=== PATIENT | male | born 1975 | race Caucasian/White ===

== ENCOUNTER 2017-01-23 11:07 | Inpatient (IN) | payer OTHER ==
[~2017-01-23] VITALS: Ht 177.8 cm; Wt 79.7 kg
[2017-01-23] MEDS ORDERED: SODIUM CHLORID 0.9% 500 ML IV PRN (11:30)
[2017-01-23] MEDS ORDERED: POVIDONE IODINE 5% (ANTISEPSIS KIT) 4 APPLICATIONS EACH NARE PRN (11:30)
[2017-01-23] MEDS ORDERED: LACTATED RINGER'S 1000 ML IV PRN (11:30)
[2017-01-23] MEDS ORDERED: INSULIN HUMAN REGULAR 1,000 UNITS/10 ML VIAL SQ PRN (11:30)
[2017-01-23] MEDS ORDERED: CHLORHEXIDINE GLUCONATE 2 % 1 PACK (2 CLOTHS) TOPICAL PRN (11:30)
[2017-01-23] MEDS ORDERED: ceFAZolin 2 GM PREMIX 50 ML IV SCH (11:30)
[2017-01-23] MEDS ORDERED: METOPROLOL TARTRATE 25 MG TAB PO PRN (11:30)
[2017-01-23 11:31] VITALS: BP 111/71; PULSE 71; RESP 20; TEMP 97.8; O2SAT 97
[2017-01-23] MEDS ORDERED: ONDANSETRON HCL 4 MG/2 ML VIAL IV PUSH ONE (12:00)
[2017-01-23] MEDS ORDERED: LACTATED RINGER'S 1000 ML INJ 2,000 ML IV ONE (12:00)
[2017-01-23] MEDS ORDERED: PROPOFOL 200 MG/20 ML AMP IV ONE (12:00)
[2017-01-23 12:04] LABS: INTERNATIONAL NORMALIZED RATIO 0.9 RATIO; PROTHROMBIN TIME - PATIENT 10.2 SEC (9.8-11.6)
[2017-01-23] MEDS ORDERED: ACETAMINOPHEN 1000 MG/100 ML VIAL IV ONE (12:31)
[2017-01-23] MEDS ORDERED: MIDAZOLAM HCL 2 MG/2 ML VIAL ONE (12:32)
[2017-01-23] MEDS ORDERED: fentaNYL CITRATE 250 MCG/5 ML AMP ONE ×2 (12:32→15:53)
[2017-01-23] MEDS ORDERED: HYDROmorphone HCL PF 2 MG/ML VIAL ONE (12:32)
[2017-01-23] MEDS ORDERED: SUGAMMADEX SODIUM 200 MG/2 ML VIAL IV PUSH ONE ×2 (12:32)
[2017-01-23] MEDS ORDERED: LORazepam 2 MG/ML VIAL ONE (16:32)
[2017-01-23] MEDS ORDERED: *morphine SULFATE 8 MG/ML PERIprocedure ONLY ONE ×2 (16:33→18:28)
[2017-01-23] MEDS: PANTOPRAZOLE SODIUM 40 MG VIAL IV PUSH SCH (17:06)
[2017-01-23] MEDS: ACETAMINOPHEN 1000 MG/100 ML VIAL IV SCH ×2 (17:06→23:12)
[2017-01-23] MEDS: SODIUM CHLOR 0.9% 1000 ML INJ 1,000 ML IV SCH (17:15)
[2017-01-23] MEDS ORDERED: DO NOT ADM ANY ANTICOAGULANT DRUGS PRN (17:45)
[2017-01-23 18:03] LABS: AUTOMATED NEUTROPHIL # 15.9 TH/MM3 (1.8-7.7); BASOPHIL % 0.2 % (0.0-2.0); EOSINOPHIL % 0.2 % (0.0-4.0); HEMATOCRIT 39.1 % (39.0-51.0); HEMO FLAGS DIFF FINAL; LYMPH % 6.2 % (9.0-44.0); LYMPHOCYTE # 1.1 TH/MM3 (1.0-4.8); MEAN CELL VOLUME 91.6 FL (80.0-100.0); MEAN CORPUSCULAR HEMOGLOBIN 30.7 PG (27.0-34.0); MEAN CORPUSCULAR HGB CONC 33.5 % (32.0-36.0); MONO % 2.1 % (0.0-8.0); NEUT % 91.3 % (16.0-70.0); PLATELET COUNT 160 TH/MM3 (150-450); RED BLOOD COUNT 4.27 MIL/MM3 (4.50-5.90); RED CELL DISTRIBUTION WIDTH 13.5 % (11.6-17.2); WHITE BLOOD COUNT 17.4 TH/MM3 (4.0-11.0)
[2017-01-23 18:21] LABS: BICARBONATE 26.8 MEQ/L (21.0-32.0); POTASSIUM 3.8 MEQ/L (3.5-5.1)
[2017-01-23 20:00] VITALS: BP 118/75; PULSE 87; RESP 17; TEMP 96.6; O2SAT 97
[2017-01-23] MEDS: DOCUSATE SODIUM 100 MG CAP PO SCH (20:09)
[2017-01-23] MEDS: ONDANSETRON HCL 4 MG/2 ML VIAL IV PUSH PRN (21:17)
[2017-01-23] MEDS: LORazepam 1 MG TAB PO PRN (21:48)
[2017-01-24] VITALS: BP 125/70; PULSE 80; RESP 17; TEMP 97.4; O2SAT 97
[2017-01-24] MEDS: SODIUM CHLOR 0.9% 1000 ML INJ 1,000 ML IV SCH ×3 (01:45→18:13)
[2017-01-24 04:00] VITALS: BP 118/72; PULSE 76; RESP 17; TEMP 98.7; O2SAT 97
[2017-01-24] MEDS: ACETAMINOPHEN 1000 MG/100 ML VIAL IV SCH ×4 (04:42→23:44)
[2017-01-24] MEDS: ONDANSETRON HCL 4 MG/2 ML VIAL IV PUSH PRN ×2 (05:52→16:42)
[2017-01-24] MEDS: LORazepam 1 MG TAB PO PRN (05:52)
[2017-01-24 08:00] VITALS: BP 107/68; PULSE 99; RESP 17; TEMP 96.9; O2SAT 97
[2017-01-24 08:14] LABS: HEMATOCRIT 38.7 % (39.0-51.0); MEAN CELL VOLUME 90.8 FL (80.0-100.0); MEAN CORPUSCULAR HEMOGLOBIN 31.1 PG (27.0-34.0); MEAN CORPUSCULAR HGB CONC 34.2 % (32.0-36.0); PLATELET COUNT 157 TH/MM3 (150-450); RED BLOOD COUNT 4.26 MIL/MM3 (4.50-5.90); RED CELL DISTRIBUTION WIDTH 13.1 % (11.6-17.2); REVIEW FLAG FINAL; WHITE BLOOD COUNT 16.7 TH/MM3 (4.0-11.0)
--- NOTE | 2017-01-24 08:21 | MP ---
cc: SALAZAR OLIVERA MD DATE OF SURGERY 01/23/2017 PREOPERATIVE DIAGNOSIS Left solid renal mass POSTOPERATIVE DIAGNOSIS Left solid renal mass PROCEDURE PERFORMED Left robotic radical nephrectomy. SURGEON Salazar Olivera MD ANESTHESIA General COMPLICATIONS None PREOPERATIVE ANTIBIOTICS Ancef one gram IV DRAINS None SPECIMEN Left kidney for permanent BLOOD LOSS 50 mL FLUIDS Crystalloids DISPOSITION To recovery INDICATIONS The patient is a 41-year-old male who was found to be having bilateral flank pain. The patient has a CT of the abdomen and pelvis with and without contrast and was found to have a suspicious solid 3.7 renal mass on his anterior mid pole of his left kidney. Treatment options were discussed including versus partial nephrectomy versus radical nephrectomy versus cryoablation. The risks, benefits, advantages and side effects of each potential treatment modality were discussed and he elected to proceed with a radical partial nephrectomy. After the risks and benefits and alternatives specifically of partial nephrectomy were explained including the risk of positive margins, dialysis, renal failure, conversion to open and loss of the entire kidney among others, he elected to proceed and informed consent was obtained. DETAILS OF THE PROCEDURE The patient was properly identified, brought back to the operating room and was laid supine on the operating table. A formal time-out was performed under the direction of anesthesiology. The patient was induced under general aesthetic. Preoperative antibiotics in the form of Ancef 2 grams IV were given for the start of the procedure. The patient was then placed in the right lateral decubitus position with the left side up. All pressure points were padded. Hsu catheter was placed under sterile technique. A stab incision was made superior and lateral to the umbilicus. At this time, a Veress needle was used to gain access to the abdominal cavity. Pneumoperitoneum was achieved. Under direct visualization, I placed the camera port after extending the incision. The abdominal cavity was inspected with no evidence of any intra-abdominal injury or obvious bleeding. At this time, the four other remaining ports were placed under direct visualization including the two 8 mm robotic ports that are triangulated off the camera port, as well as a superior midline and inferior midline 12 mm certified medical technician assistant port. At this time, the robot was then brought into position. We began by taking down some minor adhesions up near the splenic flexure. I then took down the white line of Toldt and reflected the colon medially. This exposed the retroperitoneum. I then carefully dissected the mesentery off of the kidney and this exposed the gonadal vein and ureter quite easily. I then developing a plane between the ureter and the psoas muscle. The kidney was then retracted anterior to the abdominal wall and I marched cephalad up to the psoas muscle bluntly dissecting fat. I followed the left gonadal vein to the insertion of left renal vein. This was then carefully taken with a robotic vessel stapler. The artery and vein were then carefully dissected out circumferentially. At this time, I then defatted the kidney and came across the tumor corresponding to the CT scan findings. It appeared that the tumor sat on top of the renal vein and there was no obvious plane that was seen. This was consistent with CT findings. After careful inspection, I made a decision that we would be unable to remove the tumor successfully and repair the renal defect without injuring the renal vein. Therefore, we talked with the patient in the patient's family preoperatively, it was decided just to remove the entire kidney. At this time using an endovascular stapler, the artery and vein were then taken separately. The upper pole including the splenic flexure attachments and the lateral part of kidney were carefully dissected off with electrocautery. There was some bleeding in the left upper adrenal bed and the adrenal gland was identified. Bleeding was controlled. At this time, the ureter and gonadal vein caudally were then taken as well. The kidney was completely freed. It was then placed in an EndoCatch bag for later removal. I later inspect the adrenal bed and the hilum. It appeared to be dry. At this time, I placed three grams of Josh for hemostatic purposes. The pressure was then dropped down to seven intra-abdominally. There was no evidence any bleeding. At this time, the robot was then undocked. I extracted the kidney through the left lower quadrant position after extending the incision. The kidney was then removed in its entirety in an EndoCatch bag. The fascia was then closed with a running 1-0 PDS. A second look was then performed. The abdominal cavity appeared to be dry. The underneath portion of the closing incision was free of bowel. All ports were then removed under direct visualization. Skin was closed with absorbable suture. This concluded the procedure. The patient was extubated and sent to recovery in stable condition to be admitted for routine postop care. Sponge and needle count was correct and the case. MD PABLO Chin/GURU /3:58 PM /8:00 AM
[2017-01-24] MEDS: DOCUSATE SODIUM 100 MG CAP PO SCH ×2 (08:22→21:00)
[2017-01-24] MEDS: MORPHINE SULFATE 4 MG/ML INJ IV PUSH PRN ×2 (08:25→11:33)
[2017-01-24 08:32] LABS: BICARBONATE 25.3 MEQ/L (21.0-32.0); POTASSIUM 4.1 MEQ/L (3.5-5.1)
[2017-01-24] MEDS: METOCLOPRAMIDE HCL 10 MG/2 ML VIAL IV PUSH PRN (11:00)
[2017-01-24 12:00] VITALS: BP 109/64; PULSE 83; RESP 18; TEMP 97.3; O2SAT 98
--- NOTE | 2017-01-24 12:34 | HHI.PR ---
Subjective Patient symptoms today anxiety attack overnight. Relieved with Ativan. Also N/V. Denies flatus. Does not have appetite. Pain controlled. OOB today. Objective Vital Signs Vital Signs Date Time Temp Pulse Resp B/P Pulse Ox O2 Delivery O2 Flow Rate FiO2 01/24/17 11:38 18 01/24/17 10:45 18 01/24/17 10:45 18 01/24/17 08:00 96.9 99 17 107/68 97 01/24/17 04:00 98.7 76 17 118/72 97 01/24/17 00:00 97.4 80 17 125/70 97 01/23/17 20:00 96.6 87 17 118/75 97 01/23/17 18:30 98.0 85 20 129/79 96 Nasal Cannula 2 01/23/17 18:15 82 18 115/64 97 Nasal Cannula 2 01/23/17 18:00 82 18 118/69 96 Nasal Cannula 2 01/23/17 17:45 81 13 115/64 96 Nasal Cannula 2 01/23/17 17:30 83 13 119/69 96 Nasal Cannula 2 01/23/17 17:15 82 13 119/67 97 Nasal Cannula 2 01/23/17 17:00 78 13 116/74 97 Nasal Cannula 2 01/23/17 16:45 79 13 118/70 97 Nasal Cannula 2 01/23/17 16:33 97.5 91 13 141/76 93 Nasal Cannula 2 Result Diagram: 01/24/17 0643 01/24/17 0643 Objective Remarks NAD. A/O x 3 CTAB RRR abd soft, non distended, appropriately tender. Inc c/d/i Hsu urine clear Ext NT. Medications and IVs Current Medications Medications (Trade) Dose Ordered Sig/Gillian Route Start Time Stop Time Status Last Admin Lactated Ringer's 1,000 ml @ 30 mls/hr Q24H PRN IV 01/23/17 11:30 01/26/17 11:29 Sodium Chloride 500 ml @ 30 mls/hr [id number] PRN IV 01/23/17 11:30 01/26/17 11:29 (NS 1000 ml Inj) 1,000 ml @ 125 mls/hr Q8H IV 01/23/17 18:00 01/24/17 10:13 (Colace) 100 mg BID PO 01/23/17 21:00 01/24/17 08:22 (Roxicodone) 10 mg Q4H PRN PO 01/23/17 16:00 01/24/17 10:08 (Roxicodone) 5 mg Q4H PRN PO 01/23/17 16:00 (Ofirmev Inj) 1,000 mg Q6H IV 01/23/17 17:00 01/24/17 10:15 Morphine Sulfate 4 mg 4 mg Q3H PRN IV PUSH 01/23/17 16:00 01/24/17 11:33 (Ancef Inj/NS Inj) 100 ml @ 200 mls/hr Q8H IV 01/23/17 22:00 01/24/17 05:52 (Protonix Inj) 40 mg Q24H IV PUSH 01/23/17 17:00 01/23/17 17:06 (Zofran Inj) 4 mg Q6HR PRN IV PUSH 01/23/17 16:00 01/24/17 05:52 Miscellaneous Information ALL NURSING DEPARTME... UNSCH PRN .XX 01/23/17 17:45 01/24/17 17:44 (Reglan Inj) 5 mg Q8H PRN IV PUSH 01/24/17 10:45 01/24/17 11:00 Assessment and Plan Assessment and Plan POD#1 Left robotic Radical Nephrectomy -Start Xanax -Hgb stable -Add Reglan -OOB -Hgb stable. Creatinine slightly elevated. Repeat BMP in A.M. -GI/DVT prophylaxis. Be Cheng MD Jan 24, 2017 12:34
[2017-01-24 16:00] VITALS: BP 111/76; PULSE 64; RESP 16; TEMP 96.6; O2SAT 96
[2017-01-24] MEDS: PANTOPRAZOLE SODIUM 40 MG VIAL IV PUSH SCH (16:41)
[2017-01-24] MEDS: ALPRAZolam 0.5 MG TAB PO PRN (18:28)
[2017-01-24 20:00] VITALS: BP 114/81; PULSE 83; RESP 16; TEMP 96.6; O2SAT 94
[2017-01-25] VITALS: BP 102/66; PULSE 93; RESP 18; TEMP 98.3; O2SAT 92
[2017-01-25] MEDS: ALPRAZolam 0.5 MG TAB PO PRN ×4 (00:20→22:10)
[2017-01-25] MEDS: SODIUM CHLOR 0.9% 1000 ML INJ 1,000 ML IV SCH ×4 (02:00→20:02)
[2017-01-25 04:00] VITALS: BP 117/64; PULSE 69; RESP 18; TEMP 98.2; O2SAT 93
[2017-01-25] MEDS: ACETAMINOPHEN 1000 MG/100 ML VIAL IV SCH ×2 (06:37→11:32)
[2017-01-25 06:43] LABS: BICARBONATE 25.6 MEQ/L (21.0-32.0); POTASSIUM 3.8 MEQ/L (3.5-5.1)
[2017-01-25 08:00] VITALS: BP 112/79; PULSE 98; RESP 17; TEMP 98.6; O2SAT 91
[2017-01-25] MEDS: METOCLOPRAMIDE HCL 10 MG/2 ML VIAL IV PUSH PRN ×2 (09:15→19:58)
[2017-01-25] MEDS: DOCUSATE SODIUM 100 MG CAP PO SCH ×2 (09:16→19:55)
[2017-01-25] MEDS: MORPHINE SULFATE 4 MG/ML INJ IV PUSH PRN ×2 (11:32→22:17)
[2017-01-25] MEDS: ONDANSETRON HCL 4 MG/2 ML VIAL IV PUSH PRN ×2 (11:37→19:59)
[2017-01-25 12:00] VITALS: BP 126/78; PULSE 83; RESP 17; TEMP 97.5; O2SAT 93
--- NOTE | 2017-01-25 13:11 | HHI.PR ---
Subjective Patient symptoms today nausea slightly improved. not much po intake. passed small amount of flatus. ambulating today. Voiding on own. Denies fevers, chills, chest pain. Xanax helps with anxiety. Objective Vital Signs Vital Signs Date Time Temp Pulse Resp B/P Pulse Ox O2 Delivery O2 Flow Rate FiO2 01/25/17 12:00 97.5 83 17 126/78 93 01/25/17 08:00 98.6 98 17 112/79 91 01/25/17 04:00 98.2 69 18 117/64 93 01/25/17 00:00 98.3 93 18 102/66 92 01/24/17 20:00 96.6 83 16 114/81 94 01/24/17 19:23 18 01/24/17 17:12 18 01/24/17 16:00 96.6 64 16 111/76 96 Result Diagram: 01/24/17 0643 01/25/17 0501 Objective Remarks NAD. A/O x 3 CTAB RRR abd soft, non distended, appropriately tender. Inc c/d/i Ext NT. Medications and IVs Current Medications Medications (Trade) Dose Ordered Sig/Gillian Route Start Time Stop Time Status Last Admin Lactated Ringer's 1,000 ml @ 30 mls/hr Q24H PRN IV 01/23/17 11:30 01/26/17 11:29 Sodium Chloride 500 ml @ 30 mls/hr [id number] PRN IV 01/23/17 11:30 01/26/17 11:29 (NS 1000 ml Inj) 1,000 ml @ 125 mls/hr Q8H IV 01/23/17 18:00 01/25/17 02:00 (Colace) 100 mg BID PO 01/23/17 21:00 01/25/17 09:16 (Roxicodone) 10 mg Q4H PRN PO 01/23/17 16:00 01/25/17 09:16 (Roxicodone) 5 mg Q4H PRN PO 01/23/17 16:00 (Ofirmev Inj) 1,000 mg Q6H IV 01/23/17 17:00 01/25/17 11:32 Morphine Sulfate 4 mg 4 mg Q3H PRN IV PUSH 01/23/17 16:00 01/25/17 11:32 (Ancef Inj/NS Inj) 100 ml @ 200 mls/hr Q8H IV 01/23/17 22:00 01/25/17 07:27 (Protonix Inj) 40 mg Q24H IV PUSH 01/23/17 17:00 01/24/17 16:41 (Zofran Inj) 4 mg Q6HR PRN IV PUSH 01/23/17 16:00 01/25/17 11:37 (Reglan Inj) 5 mg Q8H PRN IV PUSH 01/24/17 10:45 01/25/17 09:15 (Xanax) 0.5 mg Q6H PRN PO 01/24/17 12:30 01/25/17 09:15 Assessment and Plan Assessment and Plan POD#2 Left robotic Radical Nephrectomy -Advance diet as tolerated -Adjust pain medications. -Good UOP -GI/DVT prophylaxis -Ambulate Be Cheng MD Jan 25, 2017 13:11
[2017-01-25] MEDS: oxyCODONE/ACETAMINOPHEN 10 MG/325 MG TAB PO PRN ×2 (15:41→19:55)
[2017-01-25 16:00] VITALS: BP 129/80; PULSE 71; RESP 18; TEMP 97.3; O2SAT 93
[2017-01-25] MEDS: PANTOPRAZOLE SODIUM 40 MG VIAL IV PUSH SCH (18:02)
[2017-01-25 20:00] VITALS: BP 134/77; PULSE 77; RESP 18; TEMP 97.4; O2SAT 92
[2017-01-26] VITALS: BP 121/74; PULSE 86; RESP 18; TEMP 98.7; O2SAT 95
[2017-01-26] MEDS: ONDANSETRON HCL 4 MG/2 ML VIAL IV PUSH PRN ×2 (03:06→08:13)
[2017-01-26] MEDS: oxyCODONE/ACETAMINOPHEN 10 MG/325 MG TAB PO PRN ×5 (03:06→23:20)
[2017-01-26] MEDS: METOCLOPRAMIDE HCL 10 MG/2 ML VIAL IV PUSH PRN (03:06)
[2017-01-26 08:00] VITALS: BP 120/79; PULSE 79; RESP 18; TEMP 98.5; O2SAT 94
[2017-01-26] MEDS: DOCUSATE SODIUM 100 MG CAP PO SCH ×2 (08:02→20:02)
[2017-01-26] MEDS: ALPRAZolam 0.5 MG TAB PO PRN ×3 (08:02→20:02)
[2017-01-26 11:34] VITALS: O2SAT 96
[2017-01-26 12:00] VITALS: BP 134/79; PULSE 84; RESP 18; TEMP 99; O2SAT 95
[2017-01-26] MEDS: SODIUM CHLOR 0.9% 1000 ML INJ 1,000 ML IV SCH ×2 (13:59→18:29)
[2017-01-26] MEDS: MORPHINE SULFATE 4 MG/ML INJ IV PUSH PRN (15:09)
[2017-01-26 16:00] VITALS: BP 126/80; PULSE 72; RESP 18; TEMP 99; O2SAT 94
--- NOTE | 2017-01-26 17:01 | HHI.PR ---
Subjective Patient symptoms today feels better. less nausea. Walking around room. Minimal flatus. Denies CP./SOB/F /C. Objective Vital Signs Vital Signs Date Time Temp Pulse Resp B/P Pulse Ox O2 Delivery O2 Flow Rate FiO2 01/26/17 12:00 99.0 84 18 134/79 95 01/26/17 11:34 96 01/26/17 08:00 98.5 79 18 120/79 94 01/26/17 00:00 98.7 86 18 121/74 95 01/25/17 22:15 21 01/25/17 20:00 97.4 77 18 134/77 92 Intake & Output 01/26/17 01/26/17 07:00 19:00 Intake Total 2160 ml 360 ml Output Total 1250 ml Balance 910 ml 360 ml Intake Oral 600 ml 360 ml IV Total 1560 ml Output Urine Total 1250 ml # Bowel Movements 0 Result Diagram: 01/24/17 0643 01/25/17 0501 Objective Remarks NAD. A/O x 3 CTAB RRR abd soft, non distended, appropriately tender. Inc c/d/i Ext NT. Medications and IVs Current Medications Medications (Trade) Dose Ordered Sig/Gillian Route Start Time Stop Time Status Last Admin (NS 1000 ml Inj) 1,000 ml @ 125 mls/hr Q8H IV 01/23/17 18:00 01/26/17 13:59 (Colace) 100 mg BID PO 01/23/17 21:00 01/26/17 08:02 (Morphine Inj) 4 mg Q3H PRN IV PUSH 01/23/17 16:00 01/26/17 15:09 (Protonix Inj) 40 mg Q24H IV PUSH 01/23/17 17:00 01/25/17 18:02 (Zofran Inj) 4 mg Q6HR PRN IV PUSH 01/23/17 16:00 01/26/17 08:13 (Reglan Inj) 5 mg Q8H PRN IV PUSH 01/24/17 10:45 01/26/17 03:06 (Xanax) 0.5 mg Q6H PRN PO 01/24/17 12:30 01/26/17 13:58 (Percocet 7.5-325 Mg) 1 tab Q4H PRN PO 8/17/17 13:15 (Percocet 10-325 Mg) 1 tab Q4H PRN PO 01/25/17 13:15 01/26/17 11:28 Assessment and Plan Assessment and Plan POD#3 Left robotic Radical Nephrectomy -Advance diet as tolerated -Increase Xanax. -Good UOP. decrease IV fluids. -GI/DVT prophylaxis -Ambulate Be Cheng MD Jan 26, 2017 17:01
[2017-01-26] MEDS: PANTOPRAZOLE SODIUM 40 MG VIAL IV PUSH SCH ×2 (18:43→18:44)
[2017-01-26 20:00] VITALS: BP 132/78; PULSE 84; RESP 18; TEMP 99.5; O2SAT 92
[2017-01-27] VITALS: BP 120/71; PULSE 64; RESP 18; TEMP 98.2; O2SAT 93
[2017-01-27] MEDS: ALPRAZolam 0.5 MG TAB PO PRN ×4 (01:27→18:39)
[2017-01-27] MEDS: SODIUM CHLOR 0.9% 1000 ML INJ 1,000 ML IV SCH ×2 (04:49→16:12)
[2017-01-27] MEDS: oxyCODONE/ACETAMINOPHEN 7.5 MG/325 MG TAB PO PRN ×3 (06:36→16:49)
[2017-01-27 08:00] VITALS: BP 114/69; PULSE 59; RESP 17; TEMP 96.9; O2SAT 94
[2017-01-27 08:00] LABS: BICARBONATE 28.8 MEQ/L (21.0-32.0); POTASSIUM 3.7 MEQ/L (3.5-5.1)
[2017-01-27] MEDS: DOCUSATE SODIUM 100 MG CAP PO SCH ×2 (08:05→21:00)
[2017-01-27 12:00] VITALS: BP 133/85; PULSE 68; RESP 19; TEMP 98.4; O2SAT 93
--- NOTE | 2017-01-27 12:40 | HHI.PR ---
Subjective Patient symptoms today feels better. pain controlled. Passed more flatus. Denies fevers, chills, nausea. Ambulating. Not much of an appetite. Objective Vital Signs Vital Signs Date Time Temp Pulse Resp B/P Pulse Ox O2 Delivery O2 Flow Rate FiO2 01/27/17 08:00 96.9 59 17 114/69 94 01/27/17 00:00 98.2 64 18 120/71 93 01/26/17 20:00 99.5 84 18 132/78 92 01/26/17 16:00 99.0 72 18 126/80 94 01/26/17 15:14 18 Result Diagram: 01/24/17 0643 01/27/17 0627 Objective Remarks NAD. A/O x 3 CTAB RRR abd soft, non distended, appropriately tender. Inc c/d/i Ext NT. Medications and IVs Current Medications Medications (Trade) Dose Ordered Sig/Gillian Route Start Time Stop Time Status Last Admin (NS 1000 ml Inj) 1,000 ml @ 83 mls/hr Q12H3M IV 01/23/17 18:00 01/27/17 04:49 (Colace) 100 mg BID PO 01/23/17 21:00 01/27/17 08:05 (Morphine Inj) 4 mg Q3H PRN IV PUSH 01/23/17 16:00 01/26/17 15:09 (Protonix Inj) 40 mg Q24H IV PUSH 01/23/17 17:00 01/26/17 18:44 (Zofran Inj) 4 mg Q6HR PRN IV PUSH 01/23/17 16:00 01/26/17 08:13 (Percocet 7.5-325 Mg) 1 tab Q4H PRN PO 01/25/17 13:15 01/27/17 06:36 (Percocet 10-325 Mg) 1 tab Q4H PRN PO 01/25/17 13:15 01/26/17 23:20 (Xanax) 1 mg Q6H PRN PO 01/26/17 18:30 01/27/17 06:36 Assessment and Plan Assessment and Plan POD#4 Left robotic Radical Nephrectomy -Creatinine improved -Pain control -GI/DVT prophylaxis -Discussed pathology with him -Likely d/c tomorrow Be Cheng MD Jan 27, 2017 12:40
[2017-01-27] MEDS ORDERED: ALPR.5 PO (12:42)
[2017-01-27] MEDS ORDERED: OXYC1TAB36 PO (12:42)
[2017-01-27] MEDS ORDERED: DOCU1CAP39 PO (12:42)
[2017-01-27] MEDS ORDERED: ZOFR4TAB3 SL (12:42)
[2017-01-27] MEDS: ONDANSETRON HCL 4 MG/2 ML VIAL IV PUSH PRN ×2 (12:43→18:40)
[2017-01-27] MEDS ORDERED: PERC10TA27 PO (12:45)
[2017-01-27] MEDS: MORPHINE SULFATE 4 MG/ML INJ IV PUSH PRN (15:01)
[2017-01-27 16:00] VITALS: BP 120/75; PULSE 62; RESP 18; TEMP 96.8; O2SAT 93
[2017-01-27 20:00] VITALS: BP 121/81; PULSE 71; RESP 18; TEMP 98.4; O2SAT 93
[2017-01-27] MEDS: oxyCODONE/ACETAMINOPHEN 10 MG/325 MG TAB PO PRN (21:27)
[2017-01-28] VITALS: BP 107/57; PULSE 63; RESP 18; TEMP 96.8; O2SAT 94
[2017-01-28] MEDS: oxyCODONE/ACETAMINOPHEN 10 MG/325 MG TAB PO PRN ×6 (00:23→22:54)
[2017-01-28] MEDS: ALPRAZolam 0.5 MG TAB PO PRN ×4 (01:20→19:52)
[2017-01-28] MEDS: ONDANSETRON HCL 4 MG/2 ML VIAL IV PUSH PRN ×3 (06:11→22:54)
[2017-01-28] MEDS: SODIUM CHLOR 0.9% 1000 ML INJ 1,000 ML IV SCH ×2 (06:32→17:33)
[2017-01-28] MEDS: DOCUSATE SODIUM 100 MG CAP PO SCH ×2 (07:31→19:49)
[2017-01-28 08:00] VITALS: BP 104/58; PULSE 71; RESP 17; TEMP 98.3; O2SAT 92
[2017-01-28 10:57] VITALS: O2SAT 93
[2017-01-28 12:00] VITALS: BP 107/63; PULSE 94; RESP 17; TEMP 96.9
[2017-01-28 16:00] VITALS: BP 116/74; PULSE 76; RESP 18; TEMP 97.3; O2SAT 95
[2017-01-28] MEDS: PANTOPRAZOLE SODIUM 40 MG VIAL IV PUSH SCH (17:28)
--- NOTE | 2017-01-28 18:31 | PD.PSY.CON ---
Provisional Diagnosis Admission Date Jan 23, 2017 at 15:53 Morton I. Adjustment disorder with depressed mood Morton II. deferred Morton III. Renal neoplasm s/p nephrectomy Morton IV. recent diagnosis of neoplasm, recent surgery, relationship discord with girlfriend, limited social support Morton V. 50 History of Present Illness Service Psychiatry Consult Requested By Primary medical team Reason for Consult Patient threatened to harm self, history of depression and bipolar dso Primary Care Physician No Primary Care Physician HPI Patient is a 41 y/o man, single, living with girlfriend and her two children, employed, past psychiatric history of bipolar disorder, no previous psychiaric admissions, one remote suicide attempt (16 y/o), no previous self - injurious behavior who was admitted for recent diagnosis of renal mass s/p nephrectomy and made statements of wanting to harm himself which psychiatry was consulted for evaluation. Patient was found lying on hospital bed, initially guarded but was later engaged in interview. Patient states that he is recovering from surgery and a few days ago had an arguement with his girlfriend and stated that he wanted to kill himself ("she knew how to push my buttons"). He states that he has always had a tumultous relationship where his girlfriend is very jeolous which many arguments revolve around her jealousy. He states that he has been in this relationship for quite some time and he is supporting her and her children financially at the moment. Recently he has been having decreased sleep, appetite,energy, feeling depressed (6/10 - 10 being its worst) but states that his mood is improving with passive SI twice in the past few months (last being 3 days ago). He denies manic or psychotic symptoms. Currently he reports feeling "better", denies SI, HI, AVH or delusions. He states that he wants to live to get clarity in his life, for his job and family. He states that after discharge from the hospital he would like to engage in outpatient mental health services. Past psychiatric history: Bipolar disorder, no prior hospitalizations, one remote suicide attempt via overdose (16 y/o), no self injurious behavior. No history of abuse Substance use history: deneis Past medical history: recent renal mass s/p nephrectomy Allergies: NKDA Social history: sridhar, domiciled with girfriend and her two children, employed, highest education is Bachelors degree Review of Systems Except as stated in HPI: all other systems reviewed are Neg Past Family Social History Coded Allergies: shellfish derived (Verified Allergy, Unknown, 01/23/17) Active Scripts Oxycodone-Acetaminophen (Percocet) 10-325 mg Tab, 1 TAB PO Q4H Y for PAIN, #30 TAB 0 Refills Prov:Be Cheng MD 01/27/17 Ondansetron Odt (Zofran Odt) 4 Mg Tab, 4 MG SL Q6HR Y for Nausea/Vomiting, #30 TAB 0 Refills Prov:Be Cheng MD 01/27/17 Oxycodone-Acetaminophen (Oxycodone-Acetaminophen) 10-325 mg Tab, 2 TAB PO Q4H Y for PAIN SCALE 5 TO 10, #30 TAB 0 Refills Prov:Be Cheng MD 01/27/17 Docusate Sodium (Dok) 100 Mg Cap, 100 MG PO BID for Constipation, #30 CAP 0 Refills Prov:Be Cheng MD 01/27/17 Alprazolam (Xanax) 0.5 Mg Tab, 1 MG PO Q6H Y for MODERATE TO SEVERE ANXIETY, # 28 TAB 0 Refills Prov:Be Cheng MD 01/27/17 Discontinued Scripts Promethazine Hcl (Promethazine Hcl) 25 Mg Tab, 25 MG PO Q12HR Y for NAUSEA OR VOMITING, #20 TAB FOR NAUSEA/VOMITING Prov:Zeny Rodriguez MD 08/26/15 Current Medications Medications (Trade) Dose Ordered Sig/Gillian Route Start Time Stop Time Status Last Admin Sodium Chloride 1,000 ml @ 83 mls/hr Q12H3M IV 01/23/17 18:00 01/27/17 04:49 (Colace) 100 mg BID PO 01/23/17 21:00 01/28/17 07:31 (Morphine Inj) 4 mg Q3H PRN IV PUSH 01/23/17 16:00 01/27/17 15:01 (Protonix Inj) 40 mg Q24H IV PUSH 01/23/17 17:00 01/28/17 17:28 (Zofran Inj) 4 mg Q6HR PRN IV PUSH 01/23/17 16:00 01/28/17 14:44 (Percocet 7.5-325 Mg) 1 tab Q4H PRN PO 01/25/17 13:15 01/27/17 16:49 (Percocet 10-325 Mg) 1 tab Q4H PRN PO 01/25/17 13:15 01/28/17 14:42 (Xanax) 1 mg Q6H PRN PO 01/26/17 18:30 01/28/17 13:46 Patient's Strengths (min. 2) verbal and communicative Physical Exam Vital Signs Vital Signs Date Time Temp Pulse Resp B/P (MAP) Pulse Ox O2 Delivery O2 Flow Rate FiO2 01/28/17 16:00 97.3 76 18 116/74 (88) 95 01/28/17 10:57 21 I/O 01/28/17 01/28/17 01/28/17 07:59 15:59 23:59 Intake Total 660 ml 238 ml Output Total 400 ml Balance 660 ml -162 ml Lab Results Labs reviewed. Laboratory Tests Test 01/27/17 06:27 Creatinine 1.55 MG/DL (0.60-1.30) Calcium Level 8.4 MG/DL (8.5-10.1) Estimat Glomerular Filtration Rate 49 ML/MIN (>89) Mental Status Examination Appearance appears stated age, in casual clothing, fair hygiene and grooming, calm and cooperative, fair eye contact Speech: Unremarkable Orientation: x3 Memory: Unremarkable Thought Process: Logical, Organized, Goal Directed Thought Content: Unremarkable Language fluent and spontaneous Fund of Knowledge average Hallucination Type: None Attention and Concentration: Good Suicidal Ideation: No Previous Suicide Attempts: Yes (remote SA at 16 y/o) Homicidal Ideation: No Previous Homicide Attempts: No Insight: Fair Judgment: WNL Affect: Good Mood: Appropriate Assessment & Plan Problem List: (1) Adjustment disorder with depressed mood ICD Codes: F43.21 - Adjustment disorder with depressed mood Status: Acute Assessment & Plan Patient is a 41 y/o man who carries a diagnosis of bipolar disorder with no prior psychiatric admissions, one remote suicide attempt, who was admitted to the medical floor for recent diagnosis of renal mass s/p nephrectomy who had expressed thoughts of self harm in the context of recent arguement with girlfriend which psychiatry was consulted for evaluation. Patient with some depressive symptoms related to his recent diagnosis of renal neoplasia, currently recovering from nephrectomy, long standing discord with girlfriend related to her jealousy with him but denies any active SI reporting having stated wanting to kill himself in reaction to his frustration from the arguePaitement with his girlfriend. Due to his recent diagnosis of renal neoplasm and surgery, unstable relationship with significant other, history of mental illness and history of remote suicide attempt patient is at moderate chronic risk for self harm. Patient has significant protective factors such as successful employment, good family support, desire to succeed, no current substance use, willing to seek treatment for mental health which he is at a low acute risk for self harm. Patient psychiatrically clear for medical disposition. Patient would benefit from referral to outpatient mental providers for continuity of care for medication management and therapy. Recommend that social work acertain an intake appointment at a local mental health clinic as part of discharge plan to ensure patient has services to support his recovery. Royce Farooq MD Jan 28, 2017 18:30
[2017-01-28 20:00] VITALS: BP 123/85; PULSE 64; RESP 16; TEMP 97.7; O2SAT 93
[2017-01-29] VITALS: BP 114/71; PULSE 71; RESP 16; TEMP 97.3; O2SAT 93
[2017-01-29] MEDS: SODIUM CHLOR 0.9% 1000 ML INJ 1,000 ML IV SCH ×2 (02:30→18:41)
[2017-01-29] MEDS: ALPRAZolam 0.5 MG TAB PO PRN ×4 (02:30→20:52)
[2017-01-29] MEDS: oxyCODONE/ACETAMINOPHEN 10 MG/325 MG TAB PO PRN ×5 (02:38→18:44)
[2017-01-29 06:01] VITALS: O2SAT 93
[2017-01-29] MEDS: ONDANSETRON HCL 4 MG/2 ML VIAL IV PUSH PRN ×3 (07:05→18:43)
[2017-01-29 08:00] VITALS: BP 110/78; PULSE 61; RESP 20; TEMP 96.9; O2SAT 95
[2017-01-29] MEDS: DOCUSATE SODIUM 100 MG CAP PO SCH ×2 (08:27→21:23)
[2017-01-29 12:00] VITALS: BP 151/95; PULSE 75; RESP 19; TEMP 98.1; O2SAT 96
[2017-01-29] MEDS ORDERED: CEPH-460 PO (12:29)
[2017-01-29] MEDS ORDERED: BISACODYL EC 5 MG TABEC PO ONE (13:00)
[2017-01-29] MEDS: CEPHALEXIN MONOHYDRATE 500 MG CAP PO SCH ×2 (13:15→18:13)
--- NOTE | 2017-01-29 14:43 | HHI.FF ---
Face to Face Verification Diagnosis: (1) Adjustment disorder with depressed mood (2) Kidney carcinoma Learning Disabled Teacher Order: To Evaluate: Living conditions/environment, Support services I have seen patient López Lozada on 01/29/17. My clinical findings support the need for the requested home health care services because: Need for psychosocial assistance I certify that my clinical findings support that this patient is homebound because: Need for psychosocial assistance Be Cheng MD Jan 29, 2017 14:43
[2017-01-29 16:00] VITALS: BP 129/80; PULSE 72; RESP 20; TEMP 98.9; O2SAT 95
[2017-01-29] MEDS: PANTOPRAZOLE SODIUM 40 MG VIAL IV PUSH SCH (16:44)
[2017-01-29 20:53] VITALS: BP 126/77; PULSE 67; RESP 19; TEMP 98.4; O2SAT 94
[2017-02-05] MEDS ORDERED: ZOFR4TAB PO (13:55)
--- NOTE | 2017-03-07 12:34 | HHI.DS ---
Discharge Summary Admission Date Jan 23, 2017 at 15:53 Discharge Date: Jan 29, 2017 Admitting Diagnosis Left Renal Mass Procedures Left Robotic Radical Nephrectomy Hospital Course 42 yo male admitted following an uncomplicated Left Robotic Radical Nephrectomy. He had a prolonged hospital course due to a post-operative ileus, followed by questionable suicidal ideation overheard during a phone conversation by the nursing staff. Psychiatry was consulted and recommended outpatient treatment. He eventually tolerated a regular diet and moving his bowels on POD # 5. He started having some drainage from one of his port incisions. He was started on Keflex. Pt Condition on Discharge: Fair Discharge Disposition: Disch w/ Home Health Serv Discharge Instructions DIET: Follow Instructions for: Heart Healthy Diet Activities you can perform: Shower Only-No Bath Additional Activity Instructio: No heavy lifting greater than 15 lbs x 4 weeks No strenous activity x 4 weeks New Medications: Cephalexin (Keflex) 500 Mg Cap 500 MG PO Q6H for Infection for 7 Days, #28 CAP 0 Refills Ondansetron Odt (Zofran Odt) 4 Mg Tab 4 MG SL Q6HR PRN for Nausea/Vomiting, #30 TAB 0 Refills Oxycodone-Acetaminophen (Percocet) 10-325 mg Tab 1 TAB PO Q4H PRN for PAIN, #30 TAB 0 Refills Alprazolam (Xanax) 0.5 Mg Tab 1 MG PO Q6H PRN for MODERATE TO SEVERE ANXIETY, #28 TAB 0 Refills Docusate Sodium (Dok) 100 Mg Cap 100 MG PO BID for Constipation, #30 CAP 0 Refills Be Cheng MD Mar 07, 2017 12:34
[2017-03-22] MEDS ORDERED: ALPR.5 PO (10:36)
== END 2017-01-29 21:45 | disposition home or self-care (01) | DRG 658 ==
LOC: HSDC 11:07 → HSDI 15:53 → N07B 18:49
PROVIDERS: ADMIT Urology; ATTEND Urology
PROC: 8E0W4CZ Robotic Assisted Procedure of Trunk Region, Percutaneous Endoscopic Approach (ICD-10-PCS; 2017-01-23)
PROC: 0TT14ZZ Resection of Left Kidney, Percutaneous Endoscopic Approach (ICD-10-PCS; principal; 2017-01-23 12:35)
DX: C64.2 Malignant neoplasm of left kidney, except renal pelvis (principal); F41.9 Anxiety disorder, unspecified; F43.21 Adjustment disorder with depressed mood; R11.2 Nausea with vomiting, unspecified
CPT/HCPCS: 36415; 76998; 80048; 85025; 85027; 85610; 86850; 86900; 86901; 86920; 88307; C9113; J0131; J0690; J1170; J2060; J2250; J2270; J2405; J2765; J3010; J7030; J7120

== ENCOUNTER 2017-01-29 22:17 | Emergency (ER) | payer OTHER ==
[~2017-01-29] VITALS: Ht 177.8 cm; Wt 75.0 kg
[~2017-01-29 22:17] MED LIST: ALPR.5 PO; CEPH-460 PO; DOCU1CAP39 PO; OXYC1TAB36 PO; PERC10TA27 PO; ZOFR4TAB3 SL
[2017-01-29 22:22] VITALS: BP 141/93; PULSE 78; RESP 16; TEMP 99.1; O2SAT 95
[2017-01-29] MEDS ORDERED: ACETAMINOPHEN 325 MG TAB PO ONE (23:15)
--- NOTE | 2017-01-29 23:21 | PD ---
HPI Chief Complaint: Fall Time Seen by Provider: 23:06 Travel History International Travel<30 days: No Contact w/Intl Traveler<30days: No Traveled to known affect area: No History of Present Illness HPI The patient is a 41-year-old male who presents to the emergency department after he states he fell and struck his head while being discharged from the hospital. The patient was recently admitted to the hospital and underwent robotic partial nephrectomy by Dr. Cheng. The patient apparently made suicidal threats while he was inpatient and was evaluated by psychiatry. The patient was discharged earlier today, states that an individual came in his room and had circled that he was a smoker, the patient asked that to be changed. The patient states he got up went to the bathroom and subsequently fell and struck his head. The patient is unsure if there was a loss of consciousness. He currently complains of posterior head pain and left elbow pain. The patient states he was discharged, but wants to be evaluated for his headache after the fall. According to nursing staff the patient was using profanity and refusing to leave the medical floor earlier today. PFSH Past Medical History Bipolar Disorder: Yes Anxiety: Yes Depression: Yes Cancer: Yes Cardiovascular Problems: No Diabetes: No Diminished Hearing: No Endocrine: No Genitourinary: No Hepatitis: No Hiatal Hernia: No Immune Disorder: No Musculoskeletal: No Neurologic: No Psychiatric: Yes Reproductive: No Respiratory: No Thyroid Disease: No Past Surgical History AICD: No Ear Surgery: No Endocrine Surgery: No Eye Surgery: No Genitourinary Surgery: Yes (LEFT PARTIAL NEPHRECTOMY) Gynecologic Surgery: No Joint Replacement: No Oral Surgery: Yes (PARTIALS LOWER PERMANENT) Pacemaker: No Other Surgery: Yes (Left nephrectomy) Social History Alcohol Use: No Tobacco Use: No Substance Use: No Allergies-Medications (Allergen,Severity, Reaction): Coded Allergies: shellfish derived (Verified Allergy, Unknown, 01/29/17) Reported Meds & Prescriptions Reported Meds & Active Scripts Active Keflex (Cephalexin) 500 Mg Cap 500 Mg PO Q6H 7 Days Percocet (Oxycodone-Acetaminophen) 10-325 mg Tab 1 Tab PO Q4H PRN Zofran Odt (Ondansetron Odt) 4 Mg Tab 4 Mg SL Q6HR PRN Oxycodone-Acetaminophen 10-325 mg Tab 2 Tab PO Q4H PRN Dok (Docusate Sodium) 100 Mg Cap 100 Mg PO BID Xanax (Alprazolam) 0.5 Mg Tab 1 Mg PO Q6H PRN Review of Systems Except as stated in HPI: all other systems reviewed are Neg HENT: Positive: Headaches, No: Neck Pain Cardiovascular: No: Chest Pain or Discomfort Respiratory: No: Shortness of Breath Gastrointestinal: Positive: Abdominal Pain (postoperative abdominal pain) Musculoskeletal: Positive: Pain (left elbow pain) Neurologic: Positive: Headache Physical Exam Narrative GENERAL: Awake, alert, nontoxic-appearing 41-year-old male who appears his stated age and is in no acute respiratory distress. SKIN: Focused skin assessment warm/dry. HEAD: Atraumatic. Normocephalic. No visible Cifelli hematoma. EYES: Pupils equal and round. Pupils are 4 mm bilateral and reactive. ENT: No nasal bleeding or discharge. Mucous membranes pink and moist. No significant swelling over the mandible noted, the patient is able to open and close his jaw. NECK: Trachea midline. No JVD. No tenderness of the cervical vertebrae. CARDIOVASCULAR: Regular rate and rhythm. No murmur appreciated. RESPIRATORY: No accessory muscle use. Clear to auscultation. Breath sounds equal bilaterally. GASTROINTESTINAL: Abdomen soft, postoperative changes noted. No visible bleeding from the wounds. MUSCULOSKELETAL: No obvious deformities. No clubbing. No cyanosis. No edema. The patient is able fully flex and extend the left elbow as well as supinate and pronate. No visible ecchymosis or deformity noted of the left upper extremity. Back: No tenderness over the thoracic or lumbar vertebrae. NEUROLOGICAL: Awake and alert. No obvious cranial nerve deficits. Motor grossly within normal limits. Normal speech. Nonfocal. PSYCHIATRIC: Appropriate mood and affect; insight and judgment normal. Data Data Last Documented VS Vital Signs Date Time Temp Pulse Resp B/P (MAP) Pulse Ox O2 Delivery O2 Flow Rate FiO2 01/29/17 23:07 95 Room Air 01/29/17 22:22 99.1 78 16 141/93 (109) Orders Orders Ct Brain W/O Iv Contrast(Rout) (01/29/17 ) Acetaminophen (Tylenol) (01/29/17 23:15) Basic Metabolic Panel (Bmp) (01/29/17 23:12) Complete Blood Count With Diff (01/29/17 23:12) Labs Laboratory Tests Test 01/29/17 23:40 White Blood Count 7.6 TH/MM3 Red Blood Count 4.50 MIL/MM3 Hemoglobin 13.8 GM/DL Hematocrit 40.2 % Mean Corpuscular Volume 89.4 FL Mean Corpuscular Hemoglobin 30.8 PG Mean Corpuscular Hemoglobin Concent 34.4 % Red Cell Distribution Width 13.2 % Platelet Count 201 TH/MM3 Mean Platelet Volume 8.5 FL Neutrophils (%) (Auto) 65.2 % Lymphocytes (%) (Auto) 24.7 % Monocytes (%) (Auto) 5.2 % Eosinophils (%) (Auto) 4.0 % Basophils (%) (Auto) 0.9 % Neutrophils # (Auto) 5.0 TH/MM3 Lymphocytes # (Auto) 1.9 TH/MM3 Monocytes # (Auto) 0.4 TH/MM3 Eosinophils # (Auto) 0.3 TH/MM3 Basophils # (Auto) 0.1 TH/MM3 CBC Comment DIFF FINAL Differential Comment Blood Urea Nitrogen 10 MG/DL Creatinine 1.73 MG/DL Random Glucose 135 MG/DL Calcium Level 9.1 MG/DL Sodium Level 136 MEQ/L Potassium Level 3.7 MEQ/L Chloride Level 101 MEQ/L Carbon Dioxide Level 27.6 MEQ/L Anion Gap 7 MEQ/L Estimat Glomerular Filtration Rate 43 ML/MIN MDM Medical Decision Making Medical Screen Exam Complete: Yes Emergency Medical Condition: Yes Medical Record Reviewed: Yes Interpretation(s) CT of the brain is unremarkable Laboratory Tests Test 01/29/17 23:40 White Blood Count 7.6 TH/MM3 Red Blood Count 4.50 MIL/MM3 Hemoglobin 13.8 GM/DL Hematocrit 40.2 % Mean Corpuscular Volume 89.4 FL Mean Corpuscular Hemoglobin 30.8 PG Mean Corpuscular Hemoglobin Concent 34.4 % Red Cell Distribution Width 13.2 % Platelet Count 201 TH/MM3 Mean Platelet Volume 8.5 FL Neutrophils (%) (Auto) 65.2 % Lymphocytes (%) (Auto) 24.7 % Monocytes (%) (Auto) 5.2 % Eosinophils (%) (Auto) 4.0 % Basophils (%) (Auto) 0.9 % Neutrophils # (Auto) 5.0 TH/MM3 Lymphocytes # (Auto) 1.9 TH/MM3 Monocytes # (Auto) 0.4 TH/MM3 Eosinophils # (Auto) 0.3 TH/MM3 Basophils # (Auto) 0.1 TH/MM3 CBC Comment DIFF FINAL Differential Comment Blood Urea Nitrogen 10 MG/DL Creatinine 1.73 MG/DL Random Glucose 135 MG/DL Calcium Level 9.1 MG/DL Sodium Level 136 MEQ/L Potassium Level 3.7 MEQ/L Chloride Level 101 MEQ/L Carbon Dioxide Level 27.6 MEQ/L Anion Gap 7 MEQ/L Estimat Glomerular Filtration Rate 43 ML/MIN Differential Diagnosis Differential diagnosis includes closed head injury, intracranial hemorrhage, skull fracture, malingering, mechanical fall, contusion, hematoma, fracture. Narrative Course Labs are drawn and sent. The patient was placed on cardiac telemetry monitoring and continuous pulse oximetry monitoring. Noncontrast CT the brain was obtained. The patient was administered Tylenol orally for pain. The patient's CT of the brain is unremarkable. The patient's hemoglobin is stable, at baseline. The patient's GFR was 43, his previous GFR's were mostly in the 40s, appears to be at baseline. The patient is stable for outpatient follow-up with his urologist and primary physician. Diagnosis Primary Impression: Closed head injury Qualified Codes: S09.90XA - Unspecified injury of head, initial encounter Patient Instructions: General Instructions Additional Instructions: Follow-up with your primary physician. Return if symptoms worsen or progress. Med/Other Pt SpecificInfo: No Change to Meds Disposition: 01 DISCHARGE HOME Condition: Stable Chito Borja MD Jan 29, 2017 23:21
--- NOTE | 2017-01-29 23:42 | RADRPT ---
EXAM DATE/TIME: 01/29/2017 23:19 [facility] COMPARISON: No previous studies available for comparison. INDICATIONS : Trauma; fall. RADIATION DOSE: 34.35 CTDIvol (mGy) MEDICAL HISTORY : None SURGICAL HISTORY : Left partial nephrectomy. ENCOUNTER: Initial ACUITY: 1 day PAIN SCALE: 3/10 LOCATION: cranial TECHNIQUE: Multiple contiguous axial images were obtained of the head. Using automated exposure control and adj ustment of the mA and/or kV according to patient size, radiation dose was kept as low as reasonably a chievable to obtain optimal diagnostic quality images. DICOM format image data is available electro nically for review and comparison. FINDINGS: CEREBRUM: The ventricles are normal for age. No evidence of midline shift, mass lesion, hemorrhage or acute in farction. No extra-axial fluid collections are seen. POSTERIOR FOSSA: The cerebellum and brainstem are intact. The 4th ventricle is midline. The cerebellopontine angle i s unremarkable. EXTRACRANIAL: The visualized portion of the orbits is intact. SKULL: The calvaria is intact. No evidence of skull fracture. CONCLUSION: Normal examination for a patient of this age. López Carroll MD on January 29, 2017 at 23:39 Board Certified Radiologist. This report was verified electronically.
[2017-01-29 23:55] LABS: BASOPHIL # 0.1 TH/MM3 (0-0.2); BASOPHIL % 0.9 % (0.0-2.0); EOSINOPHIL # 0.3 TH/MM3 (0-0.4); HEMATOCRIT 40.2 % (39.0-51.0); HEMO FLAGS DIFF FINAL; LYMPH % 24.7 % (9.0-44.0); LYMPHOCYTE # 1.9 TH/MM3 (1.0-4.8); MEAN CELL VOLUME 89.4 FL (80.0-100.0); MEAN CORPUSCULAR HEMOGLOBIN 30.8 PG (27.0-34.0); MEAN CORPUSCULAR HGB CONC 34.4 % (32.0-36.0); MONO % 5.2 % (0.0-8.0); NEUT % 65.2 % (16.0-70.0); PLATELET COUNT 201 TH/MM3 (150-450); RED CELL DISTRIBUTION WIDTH 13.2 % (11.6-17.2); WHITE BLOOD COUNT 7.6 TH/MM3 (4.0-11.0)
[2017-01-30 00:18] LABS: BICARBONATE 27.6 MEQ/L (21.0-32.0); POTASSIUM 3.7 MEQ/L (3.5-5.1)
[2017-02-05] MEDS ORDERED: ZOFR4TAB PO (13:55)
[2017-03-22] MEDS ORDERED: ALPR.5 PO (10:36)
== END 2017-01-30 01:10 | disposition home or self-care (01) ==
LOC: NEPE 22:17
DX: S09.90XA Unspecified injury of head, initial encounter (principal); W18.30XA Fall on same level, unspecified, initial encounter; Y92.239 Unspecified place in hospital as the place of occurrence of the external cause; M25.522 Pain in left elbow; F31.9 Bipolar disorder, unspecified; F41.9 Anxiety disorder, unspecified
CPT/HCPCS: 70450; 80048; 85025; 99284

== ENCOUNTER 2017-08-06 16:38 | Observation (INO) | payer OTHER ==
[~2017-08-06] VITALS: Ht 177.8 cm; Wt 80.0 kg
[~2017-08-06 16:38] MED LIST changes: -CEPH-460 PO; -DOCU1CAP39 PO; -OXYC1TAB36 PO; -PERC10TA27 PO; -ZOFR4TAB3 SL
[2017-08-06 16:41] VITALS: BP 165/78; PULSE 79; RESP 18; TEMP 98.6; O2SAT 99
[2017-08-06 17:12] VITALS: BP 134/86; PULSE 73; RESP 14; O2SAT 98
[2017-08-06] MEDS ORDERED: SODIUM CHLORIDE 0.9% FLUSH 10 ML FLUSH IVF PRN (17:15)
[2017-08-06] MEDS ORDERED: ASPIRIN 81 MG CHEW TAB PO ONE (17:15)
[2017-08-06] MEDS ORDERED: LORazepam 2 MG/ML VIAL IV PUSH ONE (17:15)
[2017-08-06] MEDS ORDERED: SODIUM CHLORID 0.9% 500 ML INJ 500 ML IV ONE ×2 (17:15→18:30)
[2017-08-06 17:41] LABS: AUTOMATED NEUTROPHIL # 7.2 TH/MM3 (1.8-7.7); BASOPHIL # 0.1 TH/MM3 (0-0.2); BASOPHIL % 0.7 % (0.0-2.0); EOSINOPHIL # 0.2 TH/MM3 (0-0.4); EOSINOPHIL % 1.3 % (0.0-4.0); HEMATOCRIT 42.2 % (39.0-51.0); HEMOGLOBIN 14.5 GM/DL (13.0-17.0); LYMPH % 28.9 % (9.0-44.0); LYMPHOCYTE # 3.3 TH/MM3 (1.0-4.8); MEAN CELL VOLUME 90.2 FL (80.0-100.0); MEAN CORPUSCULAR HGB CONC 34.4 % (32.0-36.0); MEAN PLATELET VOLUME 9.2 FL (7.0-11.0); MONO % 5.8 % (0.0-8.0); MONOCYTE # 0.7 TH/MM3 (0-0.9); NEUT % 63.3 % (16.0-70.0); PLATELET COUNT 197 TH/MM3 (150-450); RED BLOOD COUNT 4.68 MIL/MM3 (4.50-5.90); RED CELL DISTRIBUTION WIDTH 13.7 % (11.6-17.2); WHITE BLOOD COUNT 11.4 TH/MM3 (4.0-11.0)
--- NOTE | 2017-08-06 17:44 | RADRPT ---
EXAM DATE/TIME: 08/06/2017 17:30 [facility] COMPARISON: No previous studies available for comparison. INDICATIONS : Chest pain. MEDICAL HISTORY : None. SURGICAL HISTORY : Left partial nephrectomy. ENCOUNTER: Initial ACUITY: 1 day PAIN SCORE: 6/10 LOCATION: Bilateral chest FINDINGS: PA and lateral views of the chest demonstrate the lungs to be symmetrically aerated without evidence of mass, infiltrate or effusion. The cardiomediastinal contours are unremarkable. Osseous structure s are intact. CONCLUSION: No acute disease. Leodan Kimble MD on August 06, 2017 at 17:43 Board Certified Radiologist. This report was verified electronically.
[2017-08-06 17:58] LABS: BICARBONATE 26.5 MEQ/L (21.0-32.0); BLOOD UREA NITROGEN 20 MG/DL (7-18); CHLORIDE 106 MEQ/L (98-107); CREATININE 1.73 MG/DL (0.60-1.30); GLOMERULAR FILTRATION RATE 43 ML/MIN (>89); GLUCOSE,RANDOM 83 MG/DL (74-106); MAGNESIUM 2.1 MG/DL (1.5-2.5); SODIUM (NA) 138 MEQ/L (136-145)
[2017-08-06 18:01] LABS: TROPONIN I LESS THAN 0.02 NG/ML (0.02-0.05)
[2017-08-06 18:12] VITALS: BP 122/83; PULSE 68
[2017-08-06] MEDS ORDERED: MORPHINE SULFATE 4 MG/ML INJ IV PUSH ONE (18:30)
[2017-08-06] MEDS ORDERED: MORPHINE SULFATE 2 MG/ML INJ IV PUSH ONE (18:30)
[2017-08-06] MEDS ORDERED: ONDANSETRON HCL 4 MG/2 ML VIAL IV PUSH ONE (18:30)
[2017-08-06] MEDS ORDERED: SODIUM CHLORIDE 0.9% FLUSH 10 ML FLUSH IV FLUSH PRN (18:45)
[2017-08-06] MEDS ORDERED: TEMAZEPAM 15 MG CAP PO PRN (18:45)
[2017-08-06] MEDS ORDERED: ONDANSETRON HCL 4 MG/2 ML VIAL IV PUSH PRN ×2 (18:45→21:45)
--- NOTE | 2017-08-06 18:53 | PD ---
HPI Chief Complaint: Chest Pain Time Seen by Provider: 16:59 Travel History International Travel<30 days: No Contact w/Intl Traveler<30days: No Traveled to known affect area: No History of Present Illness HPI Male with a history renal cancer, presents today with complaints of left-sided chest pain and chest tightness. Patient reports that sharp and dull. Patient reports it as left-sided with radiation to his left arm. There is summary to produce ability however it is also there progressively worse over the last 24 hours. 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 He has not had any previous cardiac history. He does have a history of the renal cancer as above. There are no other complaints at the time of my examination. PFSH Past Medical History Bipolar Disorder: Yes Anxiety: Yes Depression: Yes Cancer: Yes Cardiovascular Problems: No Diabetes: No Diminished Hearing: No Endocrine: No Genitourinary: No Hepatitis: No Hiatal Hernia: No Immune Disorder: No Musculoskeletal: No Neurologic: No Psychiatric: Yes Reproductive: No Respiratory: No Thyroid Disease: No Past Surgical History AICD: No Ear Surgery: No Endocrine Surgery: No Eye Surgery: No Genitourinary Surgery: Yes (LEFT PARTIAL NEPHRECTOMY) Gynecologic Surgery: No Joint Replacement: No Oral Surgery: Yes (PARTIALS LOWER PERMANENT) Pacemaker: No Other Surgery: Yes (Left nephrectomy) Social History Alcohol Use: No Tobacco Use: No Substance Use: No Allergies-Medications (Allergen,Severity, Reaction): Coded Allergies: shellfish derived (Verified Allergy, Unknown, 03/22/17) Reported Meds & Prescriptions Reported Meds & Active Scripts Active No Active Prescriptions or Reported Medications Review of Systems Except as stated in HPI: all other systems reviewed are Neg General / Constitutional: No: Fever, Chills HENT: No: Headaches, Lightheadedness, Neck Pain Cardiovascular: Positive: Chest Pain or Discomfort, No: Palpitations, Irregular Rhythm Respiratory: No: Cough, Shortness of Breath Gastrointestinal: No: Nausea, Vomiting, Abdominal Pain Genitourinary: No: Frequency, Dysuria Musculoskeletal: Positive: Pain (Left-sided chest pain radiating to the left arm), No: Weakness, Edema Neurologic: No: Weakness, Dizziness, Headache Psychiatric: Positive: Anxiety (History of), No: Substance Abuse Physical Exam Narrative GENERAL: Well-developed well-nourished male in no acute respiratory distress. Patient does appear to be anxious. SKIN: Focused skin assessment warm/dry. HEAD: Atraumatic. Normocephalic. EYES: Pupils equal and round. No scleral icterus. No injection or drainage. ENT: No nasal bleeding or discharge. Mucous membranes pink and moist. NECK: Trachea midline. Supple. CARDIOVASCULAR: Regular rate and rhythm. No murmur appreciated. RESPIRATORY: No accessory muscle use. Clear to auscultation. Breath sounds equal bilaterally. GASTROINTESTINAL: Abdomen soft, non-tender, nondistended. Hepatic and splenic margins not palpable. Healed scar in the left lateral flank. This is from his nephrectomy in January of this year. MUSCULOSKELETAL: No obvious deformities. No clubbing. No cyanosis. No edema. NEUROLOGICAL: Awake and alert. No obvious cranial nerve deficits. Motor grossly within normal limits. Normal speech. PSYCHIATRIC: Appropriate mood and affect; slightly anxious. Data Data Last Documented VS Vital Signs Date Time Temp Pulse Resp B/P (MAP) Pulse Ox O2 Delivery O2 Flow Rate FiO2 08/06/17 18:12 68 122/83 (96) 08/06/17 17:24 98 Room Air 08/06/17 17:12 14 08/06/17 16:41 98.6 Orders Orders Basic Metabolic Panel (Bmp) (08/06/17 17:13) Ckmb (Isoenzyme) Profile (08/06/17 17:13) Complete Blood Count With Diff (08/06/17 17:13) Magnesium (Mg) (08/06/17 17:13) Prothrombin Time / Inr (Pt) (08/06/17 17:13) Act Partial Throm Time (Ptt) (08/06/17 17:13) Troponin I (08/06/17 17:13) Ecg Monitoring (08/06/17 17:13) Bilateral Bp Monitoring (08/06/17 17:13) Iv Access Insert/Monitor (08/06/17 17:13) Oximetry (08/06/17 17:13) Oxygen Administration (08/06/17 17:13) Aspirin Chew (Aspirin Chew) (08/06/17 17:15) Sodium Chloride 0.9% Flush (Ns Flush) (08/06/17 17:15) Sodium Chlorid 0.9% 500 Ml Inj (Ns 500 M (08/06/17 17:15) Chest, Pa & Lat (08/06/17 17:13) Lorazepam Inj (Ativan Inj) (08/06/17 17:15) CKMB (08/06/17 16:40) CKMB% (08/06/17 16:40) Electrocardiogram (08/06/17 17:06) Morphine Inj (Morphine Inj) (08/06/17 18:30) Morphine Inj (Morphine Inj) (08/06/17 18:30) Ondansetron Inj (Zofran Inj) (08/06/17 18:30) Sodium Chlorid 0.9% 500 Ml Inj (Ns 500 M (08/06/17 18:30) Place In Observation (08/06/17 18:40) Activity Bed Rest With Brp (08/06/17 18:40) Vital Signs (Adult) Q4H (08/06/17 18:40) Cardiac Rhythm .As Directed (08/06/17 18:40) Notify Dr: Other .PRN (08/06/17 18:40) Notify DrEriberto Parameters (08/06/17 18:40) Resp Oxygen Nasal Cannula (08/06/17 ) Ckmb (Isoenzyme) Profile (08/06/17 20:15) Ckmb (Isoenzyme) Profile (08/06/17 23:15) Troponin I (08/06/17 20:15) Troponin I (08/06/17 23:15) Electrocardiogram (08/06/17 20:15) Electrocardiogram (08/06/17 23:15) ^ Obtain (08/06/17 18:40) Sodium Chloride 0.9% Flush (Ns Flush) (08/06/17 18:45) Sodium Chloride 0.9% Flush (Ns Flush) (08/06/17 21:00) Ondansetron Inj (Zofran Inj) (08/06/17 18:45) Temazepam (Restoril) (08/06/17 18:45) Tyre Builder / Telemetry BEATRIS.Q8H (08/06/17 18:40) Npo After Midnight W/ Po Meds (08/06/17 Dinner) Admit Order (Ed Use Only) (08/06/17 18:44) Labs Laboratory Tests Test 2/26/18 16:40 White Blood Count 11.4 TH/MM3 Red Blood Count 4.68 MIL/MM3 Hemoglobin 14.5 GM/DL Hematocrit 42.2 % Mean Corpuscular Volume 90.2 FL Mean Corpuscular Hemoglobin 31.0 PG Mean Corpuscular Hemoglobin Concent 34.4 % Red Cell Distribution Width 13.7 % Platelet Count 197 TH/MM3 Mean Platelet Volume 9.2 FL Neutrophils (%) (Auto) 63.3 % Lymphocytes (%) (Auto) 28.9 % Monocytes (%) (Auto) 5.8 % Eosinophils (%) (Auto) 1.3 % Basophils (%) (Auto) 0.7 % Neutrophils # (Auto) 7.2 TH/MM3 Lymphocytes # (Auto) 3.3 TH/MM3 Monocytes # (Auto) 0.7 TH/MM3 Eosinophils # (Auto) 0.2 TH/MM3 Basophils # (Auto) 0.1 TH/MM3 CBC Comment DIFF FINAL Differential Comment Prothrombin Time 10.0 SEC Prothromb Time International Ratio 1.0 RATIO Activated Partial Thromboplast Time 26.2 SEC Blood Urea Nitrogen 20 MG/DL Creatinine 1.73 MG/DL Random Glucose 83 MG/DL Calcium Level 9.0 MG/DL Magnesium Level 2.1 MG/DL Sodium Level 138 MEQ/L Potassium Level 4.3 MEQ/L Chloride Level 106 MEQ/L Carbon Dioxide Level 26.5 MEQ/L Anion Gap 6 MEQ/L Estimat Glomerular Filtration Rate 43 ML/MIN Total Creatine Kinase 113 U/L Creatine Kinase MB LESS THAN 0.5 NG/ML Troponin I LESS THAN 0.02 NG/ML MDM Medical Decision Making Medical Screen Exam Complete: Yes Emergency Medical Condition: Yes Differential Diagnosis ACS versus muscular skeletal pain versus stress-induced chest pain versus infiltrate Narrative Course 42-year-old male with history of renal cancer, presents today with complaint of left-sided chest pain with radiation to his arm. Patient reports that sharp and dull. It is progressively worse over the last 24 hours. Patient does report life stressors however he states the pain preceded today's life stressor. EKG and cardiac enzymes are within normal limits. Patient does have renal insufficiency. He has been given 1 L of IV fluid. Renal insufficiency may be secondary to his single kidney. The patient has been off her chest pain center. While I feel this is atypical chest pain, cannot completely rule out cardiac etiology. He is agreeable to the chest pain center. He has been given 2 mg of morphine, 324 mg of aspirin, 1 mg of Ativan and 4 mg of Zofran. Diagnosis Primary Impression: Atypical chest pain Additional Impressions: Renal insufficiency History of renal carcinoma Admitting Information Admitting Physician Requests: Observation Scripts No Active Prescriptions or Reported Meds Adilson Mccauley MD Aug 06, 2017 18:53
[2017-08-06] MEDS ORDERED: SODIUM CHLORIDE 0.9% FLUSH 10 ML FLUSH IV FLUSH SCH (21:00)
[2017-08-06 21:11] VITALS: O2SAT 98
[2017-08-06] MEDS ORDERED: SODIUM CHLORIDE FLUSH PRN IV FLUSH (21:45)
[2017-08-06] MEDS ORDERED: ACETAMINOPHEN 500 MG CPLT PO PRN (21:45)
[2017-08-06 23:25] VITALS: BP 109/66; PULSE 59; RESP 18; TEMP 98.5; O2SAT 96
[2017-08-07 00:40] LABS: TROPONIN I LESS THAN 0.02 NG/ML (0.02-0.05)
[2017-08-07 04:23] LABS: TROPONIN I LESS THAN 0.02 NG/ML (0.02-0.05)
[2017-08-07 06:52] VITALS: BP 131/74; PULSE 87; RESP 18; TEMP 98.4; O2SAT 98
[2017-08-07 07:36] VITALS: BP 120/71; PULSE 74; RESP 16; TEMP 98; O2SAT 96
[2017-08-07 08:01] VITALS: PULSE 71
[2017-08-07] MEDS ORDERED: ALPRAZolam 0.25 MG TAB PO ONE (09:00)
[2017-08-07] MEDS ORDERED: SODIUM CHLORIDE FLUSH BID IV FLUSH SCH (09:00)
[2017-08-07] MEDS ORDERED: MORPHINE SULFATE 2 MG/ML INJ IV PUSH ONE (09:00)
[2017-08-07 09:12] LABS: BICARBONATE 23.7 MEQ/L (21.0-32.0); CREATININE 1.46 MG/DL (0.60-1.30)
--- NOTE | 2017-08-07 09:33 | HHI.HP ---
HPI Primary Care Physician No Primary Care Physician Chief Complaint Chest pain History of Present Illness This is a 42-year-old male with history of left nephrectomy in February 2017 secondary history of renal carcinoma that presents to ED to be evaluated for left-sided chest discomfort. Describes it as a tightness that has been there for greater than 16 hours. He points to the epigastric region indicate where the discomfort is located. Also complains of numbness/tingling going down his left arm. Found nothing to worsen it and nothing was improving it prior to being in the hospital. States that he was given Ativan and morphine which did seem to improve the symptoms. Denies shortness of breath, nausea, or diaphoresis. Denies recent illness. Denies fevers or chills. States he was evaluated for chest pain 6 or 7 years ago was found that was anxiety related. States he has been under a lot of stress. He is having some issues with relationship at home as well as work related stressors. Currently discomfort is a 2-3 out of 10. Review of Systems General: Patient denies fevers, chills, and recent travel. HEENT: Patient denies headache, sore throat, difficulty swallowing. Cardiovascular: Has the chest discomfort as mentioned above. Denies sensation of heart beating rapidly or irregularly. No syncope. Respiratory: Denies shortness of breath or inspirational chest discomfort. Denies coughing wheezing or hemoptysis. GI: Patient denies nausea, vomiting, diarrhea, abdominal pain, bloody stools. Musculoskeletal: Patient denies joint pain or edema. Denies calf pain or edema. Neurovascular: Patient denies numbness, tingling, weakness in extremities. Denies headache. Endocrine: Denies polyuria and polydipsia. Hematologic: Denies easy bruising. Skin: Denies rash or itching. Past Family Social History Allergies: Coded Allergies: shellfish derived (Verified Allergy, Unknown, 03/22/17) Past Medical History Left renal carcinoma with left nephrectomy February 2017. Denies hypertension , hyperlipidemia, diabetes, and known CAD. Past Surgical History Left nephrectomy. Reported Medications Reported Meds & Active Scripts Active No Active Prescriptions or Reported Medications Active Ordered Medications Current Medications Medications (Trade) Dose Ordered Sig/Gillian Route Start Time Stop Time Status Last Admin (Restoril) 15 mg HS PRN PO 08/06/17 18:45 08/06/17 20:52 (Tylenol) 500 mg Q4H PRN PO 08/06/17 21:45 (Zofran Inj) 4 mg Q6H PRN IV PUSH 08/06/17 21:45 08/07/17 08:44 (NS Flush) 2 ml BID IV FLUSH 08/07/17 09:00 08/07/17 08:45 (NS Flush) 2 ml UNSCH PRN IV FLUSH 08/06/17 21:45 Family History Denies family history of CAD. Social History Non-smoker. Denies alcohol or illicit drugs. 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 Physical Exam Vital Signs Vital Signs Date Time Temp Pulse Resp B/P (MAP) Pulse Ox O2 Delivery O2 Flow Rate FiO2 08/07/17 07:36 98.0 74 16 120/71 (87) 96 08/07/17 06:52 98.4 87 18 131/74 (93) 98 08/06/17 23:25 98.5 59 18 109/66 (80) 96 08/06/17 21:11 98 08/06/17 18:12 68 122/83 (96) 08/06/17 17:24 98 Room Air 08/06/17 17:24 (102) Room Air 08/06/17 17:12 73 14 134/86 (102) 98 Room Air 08/06/17 17:11 69 08/06/17 16:41 98.6 79 18 165/78 (107) 99 Physical Exam GENERAL: This is a well-nourished, well-developed patient, in no apparent distress. Patient speaks in clear complete sentences. Patient is pleasant. HEENT: Head is atraumatic and normocephalic. Neck is supple without lymphadenopathy and trachea is midline. No JVD or carotid bruits. CARDIOVASCULAR: Regular rate and rhythm without murmurs, gallops, or rubs. RESPIRATORY: Clear to auscultation. Breath sounds equal bilaterally. No wheezes , rales, or rhonchi. Chest wall is nontender. No use of accessory muscles. GASTROINTESTINAL: Abdomen is nontender, nondistended. Abdomen soft. No obvious pulsatile mass or bruit. No CVA tenderness. Strong femoral pulses bilaterally. Normal bowel sounds in all quadrants. MUSCULOSKELETAL: Patient is moving upper and lower extremities freely. No calf tenderness or edema, no Homans sign. Strong pulses in upper and lower extremities. NEUROLOGICAL: Patient is alert and oriented. Cranial nerves 2-12 are grossly intact. No focal deficits and speech is clear. SKIN: No rash and turgor is normal. Laboratory Laboratory Tests Test 08/06/17 16:40 08/07/17 00:00 08/07/17 03:26 08/07/17 08:40 White Blood Count 11.4 Red Blood Count 4.68 Hemoglobin 14.5 Hematocrit 42.2 Mean Corpuscular Volume 90.2 Mean Corpuscular Hemoglobin 31.0 Mean Corpuscular Hemoglobin Concent 34.4 Red Cell Distribution Width 13.7 Platelet Count 197 Mean Platelet Volume 9.2 Neutrophils (%) (Auto) 63.3 Lymphocytes (%) (Auto) 28.9 Monocytes (%) (Auto) 5.8 Eosinophils (%) (Auto) 1.3 Basophils (%) (Auto) 0.7 Neutrophils # (Auto) 7.2 Lymphocytes # (Auto) 3.3 Monocytes # (Auto) 0.7 Eosinophils # (Auto) 0.2 Basophils # (Auto) 0.1 CBC Comment DIFF FINAL Differential Comment Prothrombin Time 10.0 Prothromb Time International Ratio 1.0 Activated Partial Thromboplast Time 26.2 Blood Urea Nitrogen 20 17 Creatinine 1.73 1.46 Random Glucose 83 94 Calcium Level 9.0 9.0 Magnesium Level 2.1 Sodium Level 138 137 Potassium Level 4.3 4.4 Chloride Level 106 107 Carbon Dioxide Level 26.5 23.7 Anion Gap 6 6 Estimat Glomerular Filtration Rate 43 52 Total Creatine Kinase 113 107 103 Creatine Kinase MB LESS THAN 0.5 LESS THAN 0.5 LESS THAN 0.5 Troponin I LESS THAN 0.02 LESS THAN 0.02 LESS THAN 0.02 Result Diagram: 08/06/17 1640 08/07/17 0840 Imaging Last 48 hours Impressions Chest X-Ray 08/06/17 2453 Signed Impressions: Service Date/Time: Sunday, August 06, 2017 17:30 - CONCLUSION: No acute disease. Leodan Kimble MD Course EKGs are sinus rhythm with no significant ST segment depressions or elevations. Caprini VTE Risk Assessment Caprini VTE Risk Assessment: No/Low Risk (score <= 1) Caprini Risk Assessment Model Point Value = 1 Point Value = 2 Point Value = 3 Point Value = 5 Age 41-60 Minor surgery BMI > 25 kg/m2 Swollen legs Varicose veins or History of unexplained or recurrent spontaneous Oral contraceptives or hormone replacement Sepsis (< 1 month) Serious lung disease, including pneumonia (< 1 month) Abnormal pulmonary function Acute myocardial infarction Congestive heart failure (< 1 month) History of inflammatory bowel disease Medical patient at bed rest Age 61-74 Arthroscopic surgery Major open surgery (> 45 min) Laparoscopic surgery (> 45 min) Malignancy Confined to bed (> 72 hours) Immobilizing plaster cast Central venous access Age >= 75 History of VTE Family history of VTE Factor V Leiden Prothrombin [id number] Lupus anticoagulant Anticardiolipin antibodies Elevated serum homocysteine Heparin-induced thrombocytopenia Other congenital or acquired thrombophilia Stroke (< 1 month) Elective arthroplasty Hip, pelvis, or leg fracture Acute spinal cord injury (< 1 month) Prophylaxis Regimen Total Risk Factor Score Risk Level Prophylaxis Regimen 0-1 Low Early ambulation 2 Moderate Order ONE of the following: *Sequential Compression Device (SCD) *Heparin 5000 units SQ BID 3-4 Higher Order ONE of the following medications: *Heparin 5000 units SQ TID *Enoxaparin/Lovenox 40 mg SQ daily (WT < 150 kg, CrCl > 30 mL/min) *Enoxaparin/Lovenox 30 mg SQ daily (WT < 150 kg, CrCl > 10-29 mL/min) *Enoxaparin/Lovenox 30 mg SQ BID (WT < 150 kg, CrCl > 30 mL/min) AND/OR *Sequential Compression Device (SCD) 5 or more Highest Order ONE of the following medications: *Heparin 5000 units SQ TID (Preferred with Epidurals) *Enoxaparin/Lovenox 40 mg SQ daily (WT < 150 kg, CrCl > 30 mL/min) *Enoxaparin/Lovenox 30 mg SQ daily (WT < 150 kg, CrCl > 10-29 mL/min) *Enoxaparin/Lovenox 30 mg SQ BID (WT < 150 kg, CrCl > 30 mL/min) AND *Sequential Compression Device (SCD) Assessment and Plan Assessment and Plan * Chest pain: Patient has had serial cardiac enzymes and EKGs for ruling out purposes. He has been evaluated by Dr. Oliveira of cardiology in the chest pain center. Have discussed further evaluation of refractory chest discomfort as he continues to have discomfort in his chest. Patient has opted to have stress testing. He was made aware of his renal function, if stress test were to be abnormal this would have to be addressed prior to using contrast. He pointed to the epigastric region when discussing his chest discomfort, a CT of the abdomen and pelvis without IV and p.o. contrast has been ordered and is pending. * Renal insufficiency: Patient was counseled on the significance of having further follow-up with a suspender maker. He was given IV hydration in the ED. We will repeat renal function. Patient is stable at this time. He is agreeable to this plan. He will need regardless of outcomes a follow-up with a suspender maker. He should return to ED for interval issues. Giles Wu Aug 07, 2017 09:33
[2017-08-07] MEDS ORDERED: REGADENOSON INJ 0.4 MG/5 ML SYR ONE (10:57)
--- NOTE | 2017-08-07 12:00 | RADRPT ---
EXAM DATE/TIME: 08/07/2017 10:28 [facility] COMPARISON: No previous studies available for comparison. INDICATIONS : Substernal chest pain radiating to left arm. Angina. DOSE: 25.5 mCi Tc99m Myoview at stress. 8.6 mCi Tc99m Myoview at rest. 0.4 mg Lexiscan STRESS SYMPTOMS: Chest pain with shortness of breath. EJECTION FRACTION: 68% MEDICAL HISTORY : Renal cancer. SURGICAL HISTORY : Nephrectomy, left. ENCOUNTER: Initial ACUITY: 1 day PAIN SCALE: 5/10 LOCATION: Substernal chest TECHNIQUE: The patient underwent pharmacologic stress with infusion of prescribed dose. Continuous ECG tracing was monitored during stress. Gated SPECT imaging was performed after stress and conventional SPECT i maging was performed at rest. The examination was performed on a SPECT/CT scanner, both attenuation and non-corrected datasets were reviewed. FINDINGS: DISTRIBUTION: The maximum perfused segment at stress is in the anterior wall. PERFUSION STUDY: The pattern of perfusion at stress is within normal limits. GATED STUDY: There is intact wall motion and thickening without hypokinetic or dyskinetic segments. CONCLUSION: No evidence of fixed or reversible perfusion abnormalities. Normal wall motion and ejection fraction. RISK CATEGORY: Low (<1% Annual Mortality Rate) Moe Monroy MD on August 07, 2017 at 11:57 Board Certified Radiologist. This report was verified electronically.
[2017-08-07 12:19] VITALS: BP 120/81; PULSE 64; RESP 18; TEMP 98.4; O2SAT 95
--- NOTE | 2017-08-07 12:42 | RADRPT ---
EXAM DATE/TIME: 08/07/2017 12:03 [facility] COMPARISON: No previous studies available for comparison. INDICATIONS : Left upper quadrantdominal pain ORAL CONTRAST: No oral contrast ingested. RADIATION DOSE: 6.64 CTDIvol (mGy) MEDICAL HISTORY : Renal cell carcinoma. SURGICAL HISTORY : Nephrectomy, left. ENCOUNTER: Initial ACUITY: 2 days PAIN SCALE: 5/10 LOCATION: Left upper quadrant TECHNIQUE: Volumetric scanning of the abdomen and pelvis was performed. Using automated exposure control and ad justment of the mA and/or kV according to patient size, radiation dose was kept as low as reasonably achievable to obtain optimal diagnostic quality images. DICOM format image data is available electro nically for review and comparison. FINDINGS: LOWER LUNGS: The visualized lower lungs are clear. LIVER: Homogeneous density without lesion. There is no dilation of the biliary tree. No calcified gallston es. SPLEEN: Normal size without lesion. PANCREAS: Within normal limits. KIDNEYS: The left kidney is absent consistent with prior nephrectomy. The right kidney appears normal. ADRENAL GLANDS: Within normal limits. VASCULAR: There is no aortic aneurysm. BOWEL/MESENTERY: The stomach, small bowel, and colon demonstrate no acute abnormality. There is no free intraperitone al air or fluid. ABDOMINAL WALL: Focal scarring is identified in the left side of the abdomen. There is a scar extending to the skin s urface along the lateral margin of the rectus abdominis to the peritoneal surface. There is a small l oop of overlying bowel which appears adherent to it. There is no evidence of focal obstruction. RETROPERITONEUM: There is no lymphadenopathy. BLADDER: No wall thickening or mass. REPRODUCTIVE: Within normal limits. INGUINAL: There is no lymphadenopathy or hernia. MUSCULOSKELETAL: Within normal limits for patient age. CONCLUSION: Left-sided abdominal wall scarring involving the anterior peritoneal surface with underlying adherent loop of bowel. No findings to suggest acute process or an obstructing process. Otherwise unremarkable unenhanced evaluation. Moe Monroy MD on August 07, 2017 at 12:32 Board Certified Radiologist. This report was verified electronically.
--- NOTE | 2017-08-07 13:12 | HHI.DCPOC ---
Discharge Care Plan Diagnosis: (1) Atypical chest pain (2) Renal insufficiency Goals to Promote Your Health * To prevent worsening of your condition and complications * To maintain your health at the optimal level Directions to Meet Your Goals Take your medications as prescribed Follow your dietary instruction Follow activity as directed Keep your appointments as scheduled Take your immunizations and boosters as scheduled If your symptoms worsen call your PCP, if no PCP go to Urgent Care Center or Emergency Room Smoking is Dangerous to Your Health. Avoid second hand smoke Call the 24-hour hour crisis hotline for domestic abuse at Giles Wu Aug 07, 2017 13:12
--- NOTE | 2017-08-07 13:32 | TR ---
Date Performed: 08/07/2017 Time Performed: 11:03:45 DOCTOR: Eleonora Oliveira DRUG LIST: CLINICAL HISTORY: CHEST PAIN REASON FOR TEST: CHEST PAIN REASON FOR ENDING: OBSERVATION: CONCLUSION: Lexiscan stress test was performed under standard four minute protocol. Radionuclid e was injected one minute prior to ending the test. No electrocardiographic abormalities were present to suggest ischemia. Nuclear imaging and interpretation are pending. COMMENTS:
--- NOTE | 2017-08-07 13:35 | EKG ---
Date Performed: 08/07/2017 Time Performed: 05:38:13 PTAGE: 42 years EKG: Sinus rhythm NORMAL ECG Since PREVIOUS TRACING , no significant change noted PREVIOUS TRACIN08/06/2017 21.22 DOCTOR: Eleonora Oliveira Interpretating Date/Time 08/07/2017 13:34:24
--- NOTE | 2017-08-07 13:37 | EKG ---
Date Performed: 08/06/2017 Time Performed: 21:22:15 PTAGE: 42 years EKG: Sinus rhythm WITH SINUS ARRHYTHMIA NORMAL ECG Since PREVIOUS TRACING , no significant change noted PREVIOUS TRACIN08/06/2017 17.06 DOCTOR: Eleonora Oliveira Interpretating Date/Time 08/07/2017 13:36:10
--- NOTE | 2017-08-07 13:40 | EKG ---
Date Performed: 08/06/2017 Time Performed: 17:06:57 PTAGE: 42 years EKG: Sinus rhythm POSSIBLE RIGHT VENTRICULAR CONDUCTION DELAY BORDERLINE ECG NO PREVIOUS TRACING DOCTOR: Eleonora Oliveira Interpretating Date/Time 08/07/2017 13:38:40
== END 2017-08-07 14:05 | disposition home or self-care (01) ==
LOC: NEPC 16:38 → NEDA 18:46 → NEPFCDU 19:43
PROVIDERS: ADMIT Internal Medicine Cardiovascular Disease; ATTEND Internal Medicine Cardiovascular Disease
DX: R07.89 Other chest pain (principal); R06.02 Shortness of breath; N28.9 Disorder of kidney and ureter, unspecified; R20.0 Anesthesia of skin; R20.2 Paresthesia of skin; I20.9 Angina pectoris, unspecified; I49.9 Cardiac arrhythmia, unspecified; F31.9 Bipolar disorder, unspecified; F41.9 Anxiety disorder, unspecified; Z85.528 Personal history of other malignant neoplasm of kidney; Z90.5 Acquired absence of kidney
CPT/HCPCS: 71046; 74176; 78452; 80048; 82550; 82552; 83735; 84484; 85025; 85610; 85730; 93005; 93017; 96361; 96374; 96375; 96376; 99285; A9502; G0378; J2060; J2270; J2405; J2785; J7040